=== PATIENT | male | born 1960 | race Two or more races ===

== ENCOUNTER 2018-05-19 12:59 | Inpatient (IN) | payer BC ==
[~2018-05-19] VITALS: Ht 172.7 cm; Wt 109.1 kg
[2018-05-19] MEDS ORDERED: ACETAMINOPHEN 325 MG TAB PO ONE ×2 (13:15→13:30)
[2018-05-19] MEDS ORDERED: SODIUM CHLORIDE 0.9% 1,000 ML IV ONE ×2 (13:42)
[2018-05-19] MEDS ORDERED: KETOROLAC TROMETH 30 MG/ML 1ML VIAL IV ONE (13:45)
[2018-05-19] MEDS ORDERED: ASPirin 81 mg TAB PO ONE (13:45)
[2018-05-19] MEDS ORDERED: NITROGLYCERIN 0.4 MG SL TAB SL ONE (13:45)
[2018-05-19] MEDS ORDERED: ONDANSETRON HCL 4 MG/2 ML VIAL IV ONE (13:45)
[2018-05-19 14:01] LABS: Basophils # (auto) 0 uL; Basophils % (auto) 0.2 % (0.0-2.0); Eosinophils # (auto) 0 uL; Hematocrit 40.7 % (41.0-53.0); Lymphocytes # (auto) 0.9 uL; Lymphocytes % (auto) 4.7 % (10.0-50.0); Mean Corpuscular Hemoglobin 30.4 pg (28.0-32.0); Mean Corpuscular Hgb Conc. 34.4 g/dL (32.0-36.0); Mean Corpuscular Volume 88.2 fL (80.0-100.0); Monocytes # (auto) 1.5 uL; Monocytes % (auto) 7.6 % (0.0-12.0); Neutrophils # (auto) 17.2 uL; Neutrophils % (auto) 87.5 % (37.0-80.0); Platelet Count (auto) 211 10^3/uL (140-450); Red Blood Cells 4.62 10^6/uL (4.5-5.90); White Blood Cell 19.6 10^3/uL (4.4-10.8)
[2018-05-19 14:13] LABS: INR 1.07 (0.9-1.15); Partial Thromboplastin Time 33.6 sec (23.78-33.04); Prothrombin Time 11.4 sec (9.27-12.13)
[2018-05-19 14:14] LABS: Urine Bacteria FEW /hpf (None Seen); Urine Blood 3+ /uL (Negative); Urine Mucus FEW (None Seen); Urine Specific Gravity 1.023 (1.001-1.035); Urine WBC 18 /hpf (0 - 3)
[2018-05-19] MEDS ORDERED: PIPERACILLIN-TAZOB 3.375GM 100 ML IV ONE (14:15)
[2018-05-19 14:43] LABS: Albumin 3.7 g/dL (3.4-5.0); Calcium 8.3 mg/dL (8.5-10.1); Potassium 3.5 mmol/L (3.5-5.1)
[2018-05-19 14:44] LABS: Bilirubin, Total 1.2 mg/dL (0.2-1.0); Total Protein 7.6 g/dL (6.4-8.2)
[2018-05-19] MEDS: SODIUM CHLORIDE 0.9% 1,000 ML IV SCH (15:43)
[2018-05-19] MEDS ORDERED: NITROGLYCERIN 0.4 MG SL TAB SL PRN (15:45)
[2018-05-19] MEDS ORDERED: PROMETHAZINE HCL 25 MG/ML 1ML IV PRN (15:45)
[2018-05-19] MEDS ORDERED: DEXTROSE (50%) 50ML SYRG IV PRN (15:45)
[2018-05-19] MEDS ORDERED: cefTRIAXone 1GM/10ml IVPUSH 10 ML IV ONE (15:45)
[2018-05-19] MEDS ORDERED: MORPHINE SULFATE 4 MG/ML SYR/VIAL IV PRN ×2 (15:45)
[2018-05-19] MEDS ORDERED: HYDROcodone-ACET 5/325MG TAB PO PRN (15:45)
[2018-05-19] MEDS: InsuLIN REG 1unit/0.01ml Soln (100units/ml) SC SCH ×2 (17:00→22:00)
[2018-05-19] MEDS: MORPHINE SULFATE 4 MG/ML SYR/VIAL IV PRN (17:35)
[2018-05-19] MEDS: ACCU-CHEK COMFORT CURVE STRIP VI SCH ×2 (17:35→22:06)
[2018-05-19] MEDS: ACETAMINOPHEN 500 MG TAB PO PRN ×2 (17:59→23:35)
[2018-05-19 18:26] VITALS: BP 98/61
[2018-05-19] MEDS: traMADol HCL 50 MG TAB PO PRN (18:42)
[2018-05-19] MEDS ORDERED: OXYCODONE HCL 5MG TAB PO ONE (19:15)
[2018-05-19] MEDS ORDERED: oxyCODONE ER 10 MG TAB PO ONE (19:15)
[2018-05-19] MEDS ORDERED: ATOR10TA52 PO (19:35)
[2018-05-19] MEDS ORDERED: METF-370 PO (19:35)
[2018-05-19] MEDS ORDERED: GABA400C11 PO (19:35)
[2018-05-19] MEDS ORDERED: DICL-176 PO (19:35)
[2018-05-19] MEDS ORDERED: OXY5T PO (19:35)
[2018-05-19] MEDS ORDERED: LOSA-46 PO (19:35)
[2018-05-19] MEDS ORDERED: TRAM50TA2 PO (19:35)
[2018-05-19] MEDS: PIPERACILLIN-TAZOB 3.375GM 100 ML IV SCH (19:52)
[2018-05-19 20:00] VITALS: BP 120/69
[2018-05-19 22:00] VITALS: BP 120/69
[2018-05-19] MEDS: oxyCODONE ER 10 MG TAB PO SCH (22:06)
[2018-05-20] MEDS: SODIUM CHLORIDE 0.9% 1,000 ML IV SCH ×4 (02:21→20:34)
[2018-05-20] MEDS: MORPHINE SULFATE 4 MG/ML SYR/VIAL IV PRN (02:21)
[2018-05-20] MEDS: PIPERACILLIN-TAZOB 3.375GM 100 ML IV SCH ×4 (03:37→21:01)
[2018-05-20 05:00] VITALS: BP 127/69
[2018-05-20] MEDS: ACCU-CHEK COMFORT CURVE STRIP VI SCH ×4 (06:24→21:01)
[2018-05-20] MEDS: InsuLIN REG 1unit/0.01ml Soln (100units/ml) SC SCH ×4 (06:25→21:14)
[2018-05-20] MEDS: ACETAMINOPHEN 500 MG TAB PO PRN (06:50)
[2018-05-20 07:35] VITALS: BP 105/69
[2018-05-20 08:18] VITALS: BP 126/74
[2018-05-20] MEDS ORDERED: cefTRIAXone 1GM/10ml IVPUSH 10 ML IV SCH (09:00)
[2018-05-20] MEDS: oxyCODONE ER 10 MG TAB PO SCH ×2 (09:52→21:02)
[2018-05-20] MEDS: PANTOPRAZOLE 40 MG TAB PO SCH (09:53)
[2018-05-20] MEDS: ENOXAPARIN SOD 40 MG/0.4 ML SYRINGE SC SCH (09:53)
[2018-05-20] MEDS ORDERED: LEVOFLOXACIN 500MG 100 ML IV ONE (10:30)
[2018-05-20] MEDS ORDERED: SODIUM CHLORIDE 0.9% 500 ML IV ONE (10:45)
[2018-05-20 11:09] LABS: Basophils # (auto) 0 uL; Basophils % (auto) 0.2 % (0.0-2.0); Eosinophils # (auto) 0 uL; Hematocrit 37.6 % (41.0-53.0); Hemoglobin 12.6 g/dL (13.5-17.5); Lymphocytes % (auto) 6.4 % (10.0-50.0); Mean Corpuscular Hemoglobin 29.8 pg (28.0-32.0); Mean Corpuscular Hgb Conc. 33.5 g/dL (32.0-36.0); Mean Corpuscular Volume 88.8 fL (80.0-100.0); Monocytes % (auto) 6.1 % (0.0-12.0); Neutrophils # (auto) 13.9 uL; Neutrophils % (auto) 87.3 % (37.0-80.0); Platelet Count (auto) 161 10^3/uL (140-450); Red Blood Cells 4.23 10^6/uL (4.5-5.90); Red Cell Distribution Width 14.1 % (11.8-14.3); White Blood Cell 15.9 10^3/uL (4.4-10.8)
[2018-05-20 11:21] LABS: Albumin 3.1 g/dL (3.4-5.0); Calcium 8.3 mg/dL (8.5-10.1); Potassium 3.4 mmol/L (3.5-5.1)
[2018-05-20 11:22] LABS: BUN/Creatinine Ratio 11.2; Bilirubin, Total 1.2 mg/dL (0.2-1.0); Total Protein 7.1 g/dL (6.4-8.2)
[2018-05-20 12:08] VITALS: BP 120/68
[2018-05-20] MEDS ORDERED: ACETAMINOPHEN 325 MG TAB PO PRN (15:45)
[2018-05-20] MEDS: traMADol HCL 50 MG TAB PO PRN (15:55)
[2018-05-20] MEDS ORDERED: METOPROLOL TARTRATE 1MG/1ML-5ML VIAL IV ONE (16:15)
[2018-05-20] MEDS: KETOROLAC TROMETH 30 MG/ML 1ML VIAL IV PRN (16:22)
[2018-05-20 16:40] VITALS: BP 134/78
[2018-05-20 20:00] VITALS: BP 123/80
[2018-05-20] MEDS: TEMAZEPAM 15 MG CAP PO PRN (23:01)
[2018-05-21] VITALS: BP 122/72
[2018-05-21] MEDS: SODIUM CHLORIDE 0.9% 1,000 ML IV SCH ×5 (00:12→21:06)
[2018-05-21] MEDS: PIPERACILLIN-TAZOB 3.375GM 100 ML IV SCH (02:20)
[2018-05-21] MEDS: KETOROLAC TROMETH 30 MG/ML 1ML VIAL IV PRN ×2 (02:21→16:24)
[2018-05-21] MEDS: LORazepam 0.5 MG TAB PO PRN ×2 (02:21→17:17)
[2018-05-21 04:00] VITALS: BP 109/76
[2018-05-21 05:10] LABS: Basophils # (auto) 0 uL; Basophils % (auto) 0.1 % (0.0-2.0); Eosinophils # (auto) 0.1 uL; Eosinophils % (auto) 0.5 % (0.0-7.0); Hematocrit 34.3 % (41.0-53.0); Hemoglobin 11.8 g/dL (13.5-17.5); Lymphocytes # (auto) 0.9 uL; Lymphocytes % (auto) 7.5 % (10.0-50.0); Mean Corpuscular Hemoglobin 30.1 pg (28.0-32.0); Mean Corpuscular Hgb Conc. 34.3 g/dL (32.0-36.0); Mean Corpuscular Volume 87.6 fL (80.0-100.0); Monocytes # (auto) 0.7 uL; Monocytes % (auto) 6.1 % (0.0-12.0); Neutrophils # (auto) 10.4 uL; Neutrophils % (auto) 85.8 % (37.0-80.0); Nucleated Red Blood Cells % 0.1 %; Platelet Count (auto) 160 10^3/uL (140-450); Red Blood Cells 3.92 10^6/uL (4.5-5.90); Red Cell Distribution Width 14.2 % (11.8-14.3); White Blood Cell 12.1 10^3/uL (4.4-10.8)
[2018-05-21 05:32] LABS: Albumin 2.6 g/dL (3.4-5.0); Calcium 7.7 mg/dL (8.5-10.1); Potassium 3.3 mmol/L (3.5-5.1)
[2018-05-21 05:36] LABS: BUN/Creatinine Ratio 15.6
[2018-05-21 05:39] LABS: Bilirubin, Total 0.7 mg/dL (0.2-1.0); Total Protein 6.3 g/dL (6.4-8.2)
[2018-05-21] MEDS: ACCU-CHEK COMFORT CURVE STRIP VI SCH ×4 (05:39→21:07)
[2018-05-21] MEDS: InsuLIN REG 1unit/0.01ml Soln (100units/ml) SC SCH ×4 (05:39→21:07)
[2018-05-21] MEDS: traMADol HCL 50 MG TAB PO PRN ×2 (08:00→14:04)
[2018-05-21] MEDS ORDERED: POTASSIUM CHL 20 Meq TABLET PO ONE (08:15)
[2018-05-21] MEDS: PANTOPRAZOLE 40 MG TAB PO SCH (09:49)
[2018-05-21] MEDS: oxyCODONE ER 10 MG TAB PO SCH ×2 (09:49→21:06)
[2018-05-21] MEDS: LEVOFLOXACIN 500MG 100 ML IV SCH (09:49)
[2018-05-21] MEDS: cefTRIAXone 1GM/10ml IVPUSH 10 ML IV SCH (09:49)
[2018-05-21] MEDS: METOPROLOL TARTRATE 50 MG TAB PO SCH ×2 (09:52→21:06)
[2018-05-21] MEDS: ENOXAPARIN SOD 40 MG/0.4 ML SYRINGE SC SCH (10:21)
[2018-05-21 11:50] VITALS: BP 143/71
[2018-05-21 15:43] VITALS: BP 150/99
[2018-05-21 19:50] VITALS: BP 137/81
[2018-05-21] MEDS: TEMAZEPAM 15 MG CAP PO PRN (21:14)
[2018-05-21 22:00] VITALS: BP 141/85
[2018-05-22] MEDS: KETOROLAC TROMETH 30 MG/ML 1ML VIAL IV PRN (00:07)
[2018-05-22] MEDS: SODIUM CHLORIDE 0.9% 1,000 ML IV SCH ×3 (03:45→23:45)
[2018-05-22 05:00] VITALS: BP 137/92
[2018-05-22] MEDS: ACCU-CHEK COMFORT CURVE STRIP VI SCH ×4 (06:13→22:00)
[2018-05-22] MEDS: InsuLIN REG 1unit/0.01ml Soln (100units/ml) SC SCH ×4 (06:13→22:00)
[2018-05-22 07:16] LABS: Basophils # (auto) 0 uL; Basophils % (auto) 0.2 % (0.0-2.0); Eosinophils # (auto) 0.1 uL; Eosinophils % (auto) 0.9 % (0.0-7.0); Hematocrit 35.2 % (41.0-53.0); Hemoglobin 12.2 g/dL (13.5-17.5); Lymphocytes # (auto) 1.1 uL; Lymphocytes % (auto) 12.8 % (10.0-50.0); Mean Corpuscular Hemoglobin 30.6 pg (28.0-32.0); Mean Corpuscular Hgb Conc. 34.7 g/dL (32.0-36.0); Mean Corpuscular Volume 88.1 fL (80.0-100.0); Monocytes # (auto) 0.6 uL; Monocytes % (auto) 7.1 % (0.0-12.0); Neutrophils # (auto) 6.7 uL; Nucleated Red Blood Cells % 0.1 %; Platelet Count (auto) 208 10^3/uL (140-450); Red Blood Cells 3.99 10^6/uL (4.5-5.90); Red Cell Distribution Width 14.5 % (11.8-14.3); White Blood Cell 8.5 10^3/uL (4.4-10.8)
[2018-05-22 07:32] LABS: Potassium 3.3 mmol/L (3.5-5.1)
[2018-05-22 07:41] LABS: Albumin 2.7 g/dL (3.4-5.0); BUN/Creatinine Ratio 16.7; Bilirubin, Total 0.5 mg/dL (0.2-1.0); Calcium 8.2 mg/dL (8.5-10.1); Total Protein 6.9 g/dL (6.4-8.2)
[2018-05-22] MEDS: PANTOPRAZOLE 40 MG TAB PO SCH (09:16)
[2018-05-22 09:17] VITALS: BP 148/84
[2018-05-22] MEDS: LEVOFLOXACIN 500MG 100 ML IV SCH (09:17)
[2018-05-22] MEDS: METOPROLOL TARTRATE 50 MG TAB PO SCH ×2 (09:17→21:44)
[2018-05-22] MEDS: cefTRIAXone 1GM/10ml IVPUSH 10 ML IV SCH (09:17)
[2018-05-22] MEDS: oxyCODONE ER 10 MG TAB PO SCH ×2 (09:17→21:41)
[2018-05-22] MEDS: ENOXAPARIN SOD 40 MG/0.4 ML SYRINGE SC SCH (09:18)
[2018-05-22] MEDS ORDERED: POTASSIUM CHL 20 Meq TABLET PO ONE (11:00)
[2018-05-22 13:05] VITALS: BP 151/87
[2018-05-22] MEDS: traMADol HCL 50 MG TAB PO PRN (13:26)
[2018-05-22] MEDS ORDERED: ADENOSINE 91 MG in GIVE UN-DILUTED 0 ML IV ONE ×2 (15:00→15:15)
[2018-05-22] MEDS ORDERED: ADENOSINE 12 MG/4 ML INJ IV ONE (15:30)
[2018-05-22 16:14] VITALS: BP 151/83
[2018-05-22 17:00] VITALS: BP 154/84
[2018-05-22] MEDS: TEMAZEPAM 15 MG CAP PO PRN (21:40)
[2018-05-22 22:00] VITALS: BP 135/73
[2018-05-23] MEDS: LORazepam 0.5 MG TAB PO PRN ×2 (03:17→16:56)
[2018-05-23] MEDS: traMADol HCL 50 MG TAB PO PRN ×2 (03:17→16:41)
[2018-05-23 05:00] VITALS: BP 152/84
[2018-05-23 05:34] LABS: Albumin 2.7 g/dL (3.4-5.0); BUN/Creatinine Ratio 14.4; Calcium 7.7 mg/dL (8.5-10.1); Potassium 3.6 mmol/L (3.5-5.1)
[2018-05-23 05:37] LABS: Bilirubin, Total 0.5 mg/dL (0.2-1.0); Total Protein 6.5 g/dL (6.4-8.2)
[2018-05-23] MEDS: InsuLIN REG 1unit/0.01ml Soln (100units/ml) SC SCH ×4 (06:21→21:54)
[2018-05-23] MEDS: ACCU-CHEK COMFORT CURVE STRIP VI SCH ×4 (06:21→21:54)
[2018-05-23] MEDS: SODIUM CHLORIDE 0.9% 1,000 ML IV SCH (06:25)
[2018-05-23 09:00] VITALS: BP 143/65
[2018-05-23] MEDS: cefTRIAXone 1GM/50ML D5W 50 ML IV SCH (09:07)
[2018-05-23] MEDS: METOPROLOL TARTRATE 50 MG TAB PO SCH ×2 (09:08→21:49)
[2018-05-23] MEDS ORDERED: LIDOCAINE 2%HCL (LOCAL ANESTH.) INJ 10ml MDV ONE (09:48)
[2018-05-23] MEDS ORDERED: IODIXANOL 320MG/ML 100ML BTL IV ONE ×3 (09:48→11:02)
[2018-05-23] MEDS: oxyCODONE ER 10 MG TAB PO SCH ×2 (10:00→21:48)
[2018-05-23] MEDS: PANTOPRAZOLE 40 MG TAB PO SCH (10:00)
[2018-05-23] MEDS: ENOXAPARIN SOD 40 MG/0.4 ML SYRINGE SC SCH (10:00)
[2018-05-23] MEDS ORDERED: fentaNYL CITRATE 100 MCG/2 ML VL ONE (10:13)
[2018-05-23] MEDS ORDERED: SODIUM CHL 0.9% 50 ML ONE (10:13)
[2018-05-23] MEDS ORDERED: VERAPAMIL 2.5MG/ML INJ 2ML VIAL IV ONE (10:13)
[2018-05-23] MEDS ORDERED: MIDAZOLAM HCL 1MG/1ML-2 ML VIAL ONE (10:13)
[2018-05-23] MEDS ORDERED: ANGIOMAX 250 MG VIAL IV ONE (10:13)
[2018-05-23] MEDS ORDERED: ASPirin 325 MG TAB ONE (10:45)
[2018-05-23] MEDS ORDERED: PRASUGREL HCL 10 MG TAB ONE (10:45)
[2018-05-23] MEDS ORDERED: SODIUM CHLORIDE 0.9% 1,000 ML IV ONE (12:00)
[2018-05-23 13:00] VITALS: BP 143/75
[2018-05-23 17:00] VITALS: BP 146/77
[2018-05-23 17:49] LABS: Basophils # (auto) 0 uL; Basophils % (auto) 0.4 % (0.0-2.0); Eosinophils # (auto) 0 uL; Eosinophils % (auto) 0.6 % (0.0-7.0); Hematocrit 35.1 % (41.0-53.0); Hemoglobin 12.1 g/dL (13.5-17.5); Lymphocytes # (auto) 1.2 uL; Lymphocytes % (auto) 15.6 % (10.0-50.0); Mean Corpuscular Hemoglobin 30.4 pg (28.0-32.0); Mean Corpuscular Hgb Conc. 34.4 g/dL (32.0-36.0); Mean Corpuscular Volume 88.4 fL (80.0-100.0); Monocytes # (auto) 0.8 uL; Monocytes % (auto) 10.7 % (0.0-12.0); Neutrophils # (auto) 5.8 uL; Neutrophils % (auto) 72.7 % (37.0-80.0); Nucleated Red Blood Cells % 0.3 %; Platelet Count (auto) 228 10^3/uL (140-450); Red Blood Cells 3.97 10^6/uL (4.5-5.90); Red Cell Distribution Width 14.9 % (11.8-14.3); White Blood Cell 7.9 10^3/uL (4.4-10.8)
[2018-05-23 22:00] VITALS: BP 141/75
[2018-05-23] MEDS ORDERED: ATORVASTATIN 20 MG TAB PO SCH (22:00)
[2018-05-24] MEDS: traMADol HCL 50 MG TAB PO PRN (04:03)
[2018-05-24 05:18] VITALS: BP 151/79
[2018-05-24] MEDS: ACCU-CHEK COMFORT CURVE STRIP VI SCH ×2 (06:01→11:30)
[2018-05-24] MEDS: InsuLIN REG 1unit/0.01ml Soln (100units/ml) SC SCH ×2 (06:02→11:30)
[2018-05-24 09:00] VITALS: BP 135/76
[2018-05-24] MEDS: PANTOPRAZOLE 40 MG TAB PO SCH (09:39)
[2018-05-24] MEDS: oxyCODONE ER 10 MG TAB PO SCH (09:40)
[2018-05-24] MEDS: ENOXAPARIN SOD 40 MG/0.4 ML SYRINGE SC SCH (09:40)
[2018-05-24] MEDS: cefTRIAXone 1GM/50ML D5W 50 ML IV SCH (09:40)
[2018-05-24] MEDS: METOPROLOL TARTRATE 50 MG TAB PO SCH (09:40)
[2018-05-24] MEDS ORDERED: PRASUGREL HCL 10 MG TAB PO SCH (10:00)
[2018-05-24] MEDS ORDERED: ASPirin 81 mg TAB PO SCH (10:00)
[2018-05-24 13:00] VITALS: BP 139/82
[2018-05-24 13:29] VITALS: BP 135/76
== END 2018-05-24 14:25 | disposition home or self-care (01) | DRG 854 ==
LOC: ER 12:59 → TELE 13:00 → TELE-CENTR 16:53 → DOU IN ICU 05-20 18:21 → TELE-WESTW 05-21 23:22
PROVIDERS: ADMIT Internal Medicine; ATTEND Family Medicine
PROC: 027035Z Dilation of Coronary Artery, One Artery with Two Drug-eluting Intraluminal Devices, Percutaneous Approach (ICD-10-PCS; principal; 2018-05-23)
PROC: 4A023N7 Measurement of Cardiac Sampling and Pressure, Left Heart, Percutaneous Approach (ICD-10-PCS; 2018-05-23)
PROC: B2111ZZ Fluoroscopy of Multiple Coronary Arteries using Low Osmolar Contrast (ICD-10-PCS; 2018-05-23)
DX: A41.9 Sepsis, unspecified organism (principal); N10 Acute pyelonephritis; K76.0 Fatty (change of) liver, not elsewhere classified; N20.0 Calculus of kidney; I10 Essential (primary) hypertension; E11.9 Type 2 diabetes mellitus without complications; D35.02 Benign neoplasm of left adrenal gland; E66.9 Obesity, unspecified; Z68.36 Body mass index [BMI] 36.0-36.9, adult; E86.0 Dehydration; G89.29 Other chronic pain; M54.9 Dorsalgia, unspecified; I45.10 Unspecified right bundle-branch block; K40.20 Bilateral inguinal hernia, without obstruction or gangrene, not specified as recurrent; K57.30 Diverticulosis of large intestine without perforation or abscess without bleeding; I25.10 Atherosclerotic heart disease of native coronary artery without angina pectoris; N40.0 Benign prostatic hyperplasia without lower urinary tract symptoms; Z83.3 Family history of diabetes mellitus; Z84.1 Family history of disorders of kidney and ureter; Z90.49 Acquired absence of other specified parts of digestive tract; Z79.84 Long term (current) use of oral hypoglycemic drugs; Z79.899 Other long term (current) drug therapy
CPT/HCPCS: 36415; 71045; 74176; 78452; 80053; 81001; 82962; 83036; 83605; 83880; 84484; 85025; 85610; 85730; 86850; 86900; 86901; 87040; 87086; 87088; 87186; 92928; 93005; 93017; 93306; 93458; 96361; 96365; 96375; 99152; A6257; C1874; G0378; J0153; J0696; J1815; J1885; J1956; J2001; J2250; J2405; J2543; Q9967

== ENCOUNTER 2018-11-06 12:46 | Emergency (ER) | payer BC, OTHER ==
[~2018-11-06] VITALS: Ht 172.7 cm; Wt 106.6 kg
[~2018-11-06 12:46] MED LIST: ATOR10TA52 PO; DICL-176 PO; GABA400C11 PO; LOSA-46 PO; METF-370 PO; OXY5T PO; TRAM50TA2 PO
[2018-11-06 13:30] LABS: Basophils # (auto) 0.1 uL; Basophils % (auto) 0.5 % (0.0-2.0); Eosinophils # (auto) 0.2 uL; Eosinophils % (auto) 1.3 % (0.0-7.0); Hematocrit 40.6 % (41.0-53.0); Hemoglobin 13.7 g/dL (13.5-17.5); Lymphocytes # (auto) 1.8 uL; Lymphocytes % (auto) 13.3 % (10.0-50.0); Mean Corpuscular Hemoglobin 29.5 pg (28.0-32.0); Mean Corpuscular Hgb Conc. 33.6 g/dL (32.0-36.0); Mean Corpuscular Volume 87.9 fL (80.0-100.0); Monocytes % (auto) 7.4 % (0.0-12.0); Neutrophils # (auto) 10.2 uL; Neutrophils % (auto) 77.5 % (37.0-80.0); Platelet Count (auto) 226 10^3/uL (140-450); Red Blood Cells 4.62 10^6/uL (4.5-5.90); White Blood Cell 13.2 10^3/uL (4.4-10.8)
[2018-11-06 13:51] LABS: Alanine Aminotransferase 43 U/L (16-61); Albumin 3.9 g/dL (3.4-5.0); Anion Gap 7 (5-15); Aspartate Aminotransferase 14 U/L (15-37); Blood Urea Nitrogen 19 mg/dL (7-18); Calcium 8.8 mg/dL (8.5-10.1); Carbon Dioxide 26 mmol/L (21-32); Chloride 104 mmol/L (98-107); Glucose 133 mg/dL (74-106); Magnesium 1.9 mg/dL (1.6-2.6); Potassium 3.5 mmol/L (3.5-5.1); Sodium 137 mmol/L (136-145)
[2018-11-06 13:56] LABS: Alkaline Phosphatase 97 U/L (45-117); BUN/Creatinine Ratio 16.4; Bilirubin, Total 0.8 mg/dL (0.2-1.0); GFR African American 83 mL/min; GFR Non-African American 69 mL/min; Total Protein 7.7 g/dL (6.4-8.2)
[2018-11-06 13:58] LABS: Urine Bacteria FEW /hpf (None Seen); Urine Blood 2+ /uL (Negative); Urine Specific Gravity 1.009 (1.001-1.035); Urine WBC 247 /hpf (0 - 3)
[2018-11-07 03:36] VITALS: BP 114/73
[2018-11-07] MEDS ORDERED: PHENAZOPYRIDINE HCL 100 MG TAB PO ONE (04:00)
[2018-11-07] MEDS ORDERED: LEVOFLOXACIN 500 MG TAB PO ONE (04:00)
== END 2018-11-07 04:08 | disposition home or self-care (01) ==
LOC: ER 12:59
DX: N39.0 Urinary tract infection, site not specified (principal); N20.0 Calculus of kidney; K57.30 Diverticulosis of large intestine without perforation or abscess without bleeding; E11.9 Type 2 diabetes mellitus without complications; I10 Essential (primary) hypertension; Z87.442 Personal history of urinary calculi; Z90.49 Acquired absence of other specified parts of digestive tract; Z79.84 Long term (current) use of oral hypoglycemic drugs; Z79.899 Other long term (current) drug therapy
CPT/HCPCS: 36415; 74176; 80053; 81001; 83735; 84484; 85025

== ENCOUNTER 2019-11-16 09:33 | Inpatient (IN) | payer OTHER ==
[~2019-11-16] VITALS: Ht 172.7 cm; Wt 101.3 kg
[~2019-11-16 09:33] MED LIST changes: -LOSA-46 PO; +LOSA-69 PO
[2019-11-16 10:05] LABS: Basophils # (auto) 0 10 ^3/uL (0-0.2); Basophils % (auto) 0.4 % (0.0-2.0); Eosinophils # (auto) 0 10 ^3/uL (0-0.8); Eosinophils % (auto) 0.3 % (0.0-7.0); Hematocrit 30.5 % (41.0-53.0); Hemoglobin 10.4 g/dL (13.5-17.5); Lymphocytes % (auto) 16.4 % (10.0-50.0); Mean Corpuscular Hemoglobin 30.1 pg (28.0-32.0); Mean Corpuscular Hgb Conc. 34.1 g/dL (32.0-36.0); Mean Corpuscular Volume 88.1 fL (80.0-100.0); Monocytes # (auto) 0.7 10 ^3/uL (0-1.3); Monocytes % (auto) 5.3 % (0.0-12.0); Neutrophils # (auto) 9.7 10 ^3/uL (1.6-8.6); Neutrophils % (auto) 77.6 % (37.0-80.0); Platelet Count (auto) 251 10^3/uL (140-450); Red Blood Cells 3.46 10^6/uL (4.5-5.90); Red Cell Distribution Width 14.8 % (11.8-14.3); White Blood Cell 12.5 10^3/uL (4.4-10.8)
[2019-11-16] MEDS ORDERED: SODIUM CHLORIDE 0.9% 1,000 ML IV ONE ×3 (10:08→13:45)
[2019-11-16] MEDS ORDERED: FERROUS SULFATE 325 MG TAB PO ONE (10:15)
[2019-11-16 10:21] LABS: Albumin 3.9 g/dL (3.4-5.0); Amylase 35 U/L (25-115); Anion Gap 13 (5-15); Blood Urea Nitrogen 50 mg/dL (7-18); Calcium 8.8 mg/dL (8.5-10.1); Carbon Dioxide 20 mmol/L (21-32); Chloride 109 mmol/L (98-107); Glucose 217 mg/dL (74-106); Lipase 151 U/L (73-393); Magnesium 1.7 mg/dL (1.6-2.6); Potassium 3.4 mmol/L (3.5-5.1); Sodium 142 mmol/L (136-145)
[2019-11-16 10:28] LABS: Alanine Aminotransferase 75 U/L (16-61); Alkaline Phosphatase 83 U/L (45-117); Aspartate Aminotransferase 38 U/L (15-37); BUN/Creatinine Ratio 29.4; Bilirubin, Total 0.6 mg/dL (0.2-1.0); GFR African American 53 mL/min; GFR Non-African American 44 mL/min; Total Protein 7.4 g/dL (6.4-8.2)
[2019-11-16 10:45] LABS: INR 1.07 (0.9-1.15); Partial Thromboplastin Time 25.3 sec (23.64-32.05)
[2019-11-16 11:42] LABS: Urine Bacteria NONE SEEN /hpf (None Seen); Urine Blood 3+ /uL (Negative); Urine Mucus FEW (None Seen); Urine Specific Gravity 1.025 (1.001-1.035); Urine WBC 2 /hpf (0 - 3)
[2019-11-16] MEDS ORDERED: ONDANSETRON HCL 4 MG/2 ML VIAL IV ONE (12:30)
[2019-11-16] MEDS ORDERED: PIPERACILLIN-TAZOB 3.375GM 100 ML IV ONE (13:00)
[2019-11-16] MEDS ORDERED: LACTULOSE 20Gm/30ML SOLN PO PRN (13:30)
[2019-11-16] MEDS ORDERED: DEXTROSE (50%) 50ML SYRG IV PRN (13:30)
[2019-11-16] MEDS ORDERED: PROMETHAZINE HCL 25 MG/ML 1ML IV PRN (13:30)
[2019-11-16] MEDS ORDERED: MORPHINE SULF INJ 2 MG/ML SYRINGE 1ML IV PRN (13:30)
[2019-11-16] MEDS ORDERED: NITROGLYCERIN 0.4 MG SL TAB SL PRN (13:30)
[2019-11-16] MEDS ORDERED: PANTOPRAZOLE 40 MG/10 ML VIAL INJ IV ONE (13:30)
[2019-11-16] MEDS ORDERED: METOPROLOL TARTRATE 25 MG TAB PO ONE (14:00)
[2019-11-16] MEDS ORDERED: LORazepam 2MG/ML-1ML VIAL IV ONE (14:00)
[2019-11-16] MEDS: POTASSIUM CHL 20MEQ/100ML 100 ML IV SCH ×2 (14:25→18:00)
[2019-11-16] MEDS: SODIUM CHLORIDE 0.9% 1,000 ML IV SCH ×2 (15:00→21:08)
--- NOTE | 2019-11-16 16:35 | NUR ---
Telemetry admit from [facility] admitted to Telemetry unit after SBAR received. Patient oriented to Rebecca Fish, primary RN, unit, room, bed, and unit policies regarding patient care and visiting hours. Patient now on continuous telemetry monitoring, tele box #73 and telemetry reading on arrival to unit is ST. Patient placed on bedside oxygen, weighed by bedscale and encouraged to call if they need something. All questions and concerns addressed, patient verbalized understanding.
[2019-11-16 16:53] VITALS: BP 107/69
[2019-11-16] MEDS: InsuLIN REG 1unit/0.01ml Soln (100units/ml) SC SCH (18:00)
[2019-11-16] MEDS: ACCU-CHEK COMFORT CURVE STRIP VI SCH (18:43)
[2019-11-16 18:48] LABS: Hematocrit 24.3 % (41.0-53.0); Hemoglobin 8.3 g/dL (13.5-17.5)
--- NOTE | 2019-11-16 19:15 | NUR ---
CLOSING SHIFT NOTE PATIENT COMFORTABLY RESTING IN BED. BREATH SOUNDS EVEN AND UNLABORED. CARE ENDORSED TO ANAYELI STALEY.
--- NOTE | 2019-11-16 19:47 | NUR ---
Opening Shift Note Assumed care of patient after receiving report from LUÍS Rivera. Patient is awake and alert, resting in bed comfortably. No S/S of distress/SOB or pain. Instructed on POC and to call for assist PRN, will continue to monitor for changes Q1hr and PRN.
[2019-11-16] MEDS: MORPHINE SULF INJ 2 MG/ML SYRINGE 1ML IV PRN (21:00)
[2019-11-16] MEDS: PANTOPRAZOLE 40 MG TAB PO SCH (21:36)
[2019-11-16 22:00] VITALS: BP 120/58
[2019-11-17] MEDS: ACCU-CHEK COMFORT CURVE STRIP VI SCH ×5 (00:12→23:13)
[2019-11-17 01:13] LABS: Hemoglobin 8.1 g/dL (13.5-17.5)
[2019-11-17 01:15] LABS: Hematocrit 23.8 % (41.0-53.0)
[2019-11-17] MEDS: TEMAZEPAM 15 MG CAP PO PRN ×2 (01:19→23:13)
--- NOTE | 2019-11-17 03:09 | NUR ---
Report given by richard Branham, to continue pt. care.
[2019-11-17 05:00] VITALS: BP 111/71
[2019-11-17] MEDS: SODIUM CHLORIDE 0.9% 1,000 ML IV SCH ×3 (05:18→21:18)
[2019-11-17] MEDS: InsuLIN REG 1unit/0.01ml Soln (100units/ml) SC SCH ×5 (05:39→23:13)
[2019-11-17 06:05] LABS: Eosinophils # (auto) 0.1 10 ^3/uL (0-0.8); Hemoglobin 8.3 g/dL (13.5-17.5); Neutrophils # (auto) 6.6 10 ^3/uL (1.6-8.6)
[2019-11-17 06:08] LABS: Basophils # (auto) 0 10 ^3/uL (0-0.2); Basophils % (auto) 0.5 % (0.0-2.0); Eosinophils % (auto) 0.7 % (0.0-7.0); Hematocrit 23.8 % (41.0-53.0); Lymphocytes % (auto) 21.5 % (10.0-50.0); Mean Corpuscular Hemoglobin 30.6 pg (28.0-32.0); Mean Corpuscular Volume 87.5 fL (80.0-100.0); Monocytes # (auto) 0.5 10 ^3/uL (0-1.3); Monocytes % (auto) 5.8 % (0.0-12.0); Neutrophils % (auto) 71.5 % (37.0-80.0); Nucleated Red Blood Cells % 0.1 %; Platelet Count (auto) 212 10^3/uL (140-450); Red Blood Cells 2.72 10^6/uL (4.5-5.90); White Blood Cell 9.2 10^3/uL (4.4-10.8)
[2019-11-17 06:23] LABS: Potassium 3.5 mmol/L (3.5-5.1)
[2019-11-17 06:31] LABS: Albumin 3.6 g/dL (3.4-5.0); BUN/Creatinine Ratio 25.2; Bilirubin, Total 0.6 mg/dL (0.2-1.0); Calcium 8.4 mg/dL (8.5-10.1); Total Protein 6.5 g/dL (6.4-8.2)
--- NOTE | 2019-11-17 07:30 | NUR ---
Opening Shift Note Assumed care of patient, awake and alert. No S/S of distress/SOB or pain. Instructed on POC and to call for assist PRN, will continue to monitor for changes Q1hr and PRN. Patient is NPO for EGD.
[2019-11-17 08:00] VITALS: BP 135/74
[2019-11-17 08:41] VITALS: BP 135/74
--- NOTE | 2019-11-17 09:00 | NUR ---
Patient states he is receiving "shocks" from his tele box, wants it removed. Tele box removed. Will inform hospitalist.
[2019-11-17] MEDS ORDERED: FLUMAZENIL 0.1 MG/ML INJ 10ML MDV IV ONE (09:01)
[2019-11-17] MEDS ORDERED: NALOXONE HCL 0.4 MG/ML VIAL ONE (09:01)
[2019-11-17] MEDS ORDERED: SODIUM CHLORIDE LOCK 0 ML ONE (09:01)
[2019-11-17] MEDS ORDERED: LIDOCAINE VISCOUS 2% 15ML UD ONE (09:01)
[2019-11-17] MEDS ORDERED: fentaNYL CITRATE 100 MCG/2 ML VL ONE (09:02)
[2019-11-17] MEDS ORDERED: MIDAZOLAM HCL 5 MG/ML-1ML VIAL ONE (09:02)
[2019-11-17] MEDS ORDERED: diphenhdrAMINE HCL 50 MG/1 ML VL ONE (09:02)
--- NOTE | 2019-11-17 09:25 | NUR ---
Patient taken to OR via bed. Consents and surgical checklist in chart. Report given to Pre-op RN.
--- NOTE | 2019-11-17 10:40 | NUR ---
Dr. Guerda Rosas informed what the patient stated re the shocks from the tele box. Order received to DC tele.
[2019-11-17] MEDS ORDERED: PROPOFOL 10 MG/ML 20 ML IV ONE (11:19)
[2019-11-17] MEDS ORDERED: LIDOCAINE 2% (LOCAL ANESTH.) PF 5ml SDV ONE (11:19)
[2019-11-17] MEDS ORDERED: ONDANSETRON HCL 4 MG/2 ML VIAL IV PRN (11:45)
[2019-11-17] MEDS ORDERED: LABETALOL HCL 5 MG/ML 4ML SYRINGE IV PRN (11:45)
[2019-11-17] MEDS ORDERED: hydrALAZINE HCL 20 MG/ML VL IV PRN (11:45)
[2019-11-17] MEDS ORDERED: HYDROmorphone HCL 2 MG/ML VL IV PRN (11:45)
[2019-11-17] MEDS: MORPHINE SULF INJ 2 MG/ML SYRINGE 1ML IV PRN ×3 (11:55→21:16)
[2019-11-17 12:42] VITALS: BP 115/65
[2019-11-17] MEDS: PANTOPRAZOLE 40 MG TAB PO SCH ×2 (13:29→21:16)
[2019-11-17 17:00] VITALS: BP 126/75
--- NOTE | 2019-11-17 20:00 | NUR ---
Opening Shift Note Assumed care of patient, awake and alert. No S/S of distress/SOB or pain. Instructed on POC and to call for assist PRN, will continue to monitor for changes Q1hr and PRN.
--- NOTE | 2019-11-17 21:16 | NUR ---
Medicated with Morphine one mg.i.v.p. for back pain 01/15, and at 2145, no pain noted.
[2019-11-17 22:00] VITALS: BP 125/68
[2019-11-18] MEDS: MORPHINE SULF INJ 2 MG/ML SYRINGE 1ML IV PRN (01:12)
--- NOTE | 2019-11-18 01:12 | NUR ---
Medicated with Morphine 1mg.i.v.p for back pain 01/15, and at 013 , asleep.
[2019-11-18 05:00] VITALS: BP 133/78
[2019-11-18 05:20] LABS: Basophils # (auto) 0 10 ^3/uL (0-0.2); Eosinophils # (auto) 0 10 ^3/uL (0-0.8); Hemoglobin 8.1 g/dL (13.5-17.5); Lymphocytes # (auto) 1.4 10 ^3/uL (0.4-5.4); Monocytes # (auto) 0.6 10 ^3/uL (0-1.3)
[2019-11-18 05:22] LABS: Basophils % (auto) 0.3 % (0.0-2.0); Eosinophils % (auto) 0.3 % (0.0-7.0); Hematocrit 22.8 % (41.0-53.0); Lymphocytes % (auto) 14.3 % (10.0-50.0); Mean Corpuscular Hemoglobin 31.1 pg (28.0-32.0); Mean Corpuscular Hgb Conc. 35.5 g/dL (32.0-36.0); Mean Corpuscular Volume 87.6 fL (80.0-100.0); Monocytes % (auto) 5.8 % (0.0-12.0); Neutrophils # (auto) 7.6 10 ^3/uL (1.6-8.6); Neutrophils % (auto) 79.3 % (37.0-80.0); Platelet Count (auto) 199 10^3/uL (140-450); Red Cell Distribution Width 14.9 % (11.8-14.3); White Blood Cell 9.5 10^3/uL (4.4-10.8)
[2019-11-18 05:44] LABS: Potassium 3.6 mmol/L (3.5-5.1)
[2019-11-18] MEDS: SODIUM CHLORIDE 0.9% 1,000 ML IV SCH (05:49)
[2019-11-18] MEDS: ACCU-CHEK COMFORT CURVE STRIP VI SCH ×2 (05:50→11:40)
[2019-11-18] MEDS: InsuLIN REG 1unit/0.01ml Soln (100units/ml) SC SCH ×2 (05:50→11:40)
[2019-11-18 05:53] LABS: Albumin 3.4 g/dL (3.4-5.0); BUN/Creatinine Ratio 13.8; Bilirubin, Total 0.7 mg/dL (0.2-1.0); Calcium 8.6 mg/dL (8.5-10.1); Total Protein 6.4 g/dL (6.4-8.2)
--- NOTE | 2019-11-18 07:30 | NUR ---
Opening Shift Note Assumed care of patient, awake and alert. Sitting up in a chair. No S/S of distress/SOB or pain. Instructed on POC and to call for assist PRN, will continue to monitor for changes Q1hr and PRN.
--- NOTE | 2019-11-18 07:37 | NUR ---
Report given to Perlita Hall, patient is resting no distress.
[2019-11-18 08:00] VITALS: BP 121/68
[2019-11-18 09:00] VITALS: BP 121/68
[2019-11-18] MEDS: PANTOPRAZOLE 40 MG TAB PO SCH (09:44)
--- NOTE | 2019-11-18 12:40 | NUR ---
Discharge instructions given as ordered. Encourage to follow up with PMD as instructed. All questions and concerns addressed. Patient verbalized understanding. IV removed with catheter intact, pressure dressing applied. Telemetry unit returned to ICU. Patient taken to vehicle via wheelchair with all personal belongings, accompanied by staff and family member. No distress noted at time of departure.
[2019-11-18 12:45] VITALS: BP 142/68
[2019-11-19 10:02] LABS: Hepatitis B Surface Antibody Negative
[2019-11-19 10:23] LABS: Hepatitis A Total Antibody Positive
[2019-11-19 11:28] LABS: Hepatitis B Core Total AB Negative
[2019-11-19 11:29] LABS: Hepatitis B Surface Antigen Negative (Negative); Hepatitis C Antibody Negative (Negative)
[2020-03-21] MEDS ORDERED: ATOR40TA52 PO (14:42)
[2020-03-21] MEDS ORDERED: METO25TA93 PO (14:42)
[2020-03-21] MEDS ORDERED: CLOP75TA41 PO (14:42)
[2020-03-21] MEDS ORDERED: TAMS0.4C36 PO (14:42)
[2020-03-21] MEDS ORDERED: OXYC15TA77 PO (14:42)
[2020-03-21] MEDS ORDERED: LOSA100T33 PO (14:42)
[2020-03-21] MEDS ORDERED: DULO1CAP5 PO (14:42)
== END 2019-11-18 12:40 | disposition home or self-care (01) | DRG 377 ==
LOC: ER 09:33 → TELE 09:34 → TELE-WESTW 16:30 → WEST WING 11-17 10:36
PROVIDERS: ADMIT Internal Medicine; ATTEND Internal Medicine
PROC: 0DJ08ZZ Inspection of Upper Intestinal Tract, Via Natural or Artificial Opening Endoscopic (ICD-10-PCS; principal; 2019-11-17 11:22)
DX: K29.81 Duodenitis with bleeding (principal); N17.0 Acute kidney failure with tubular necrosis; K29.71 Gastritis, unspecified, with bleeding; G89.29 Other chronic pain; E86.0 Dehydration; D50.0 Iron deficiency anemia secondary to blood loss (chronic); N40.0 Benign prostatic hyperplasia without lower urinary tract symptoms; K57.90 Diverticulosis of intestine, part unspecified, without perforation or abscess without bleeding; M54.9 Dorsalgia, unspecified; E87.6 Hypokalemia; Z96.653 Presence of artificial knee joint, bilateral; I10 Essential (primary) hypertension; E11.65 Type 2 diabetes mellitus with hyperglycemia; E78.00 Pure hypercholesterolemia, unspecified; D72.829 Elevated white blood cell count, unspecified; Z79.899 Other long term (current) drug therapy; Z79.84 Long term (current) use of oral hypoglycemic drugs; Z87.442 Personal history of urinary calculi; Z90.49 Acquired absence of other specified parts of digestive tract; Z83.3 Family history of diabetes mellitus; Z84.1 Family history of disorders of kidney and ureter; Z95.5 Presence of coronary angioplasty implant and graft; K40.20 Bilateral inguinal hernia, without obstruction or gangrene, not specified as recurrent; K42.9 Umbilical hernia without obstruction or gangrene; M47.9 Spondylosis, unspecified
CPT/HCPCS: 36415; 43235; 71046; 74176; 76705; 80053; 81001; 82150; 82962; 83036; 83690; 83735; 84484; 85014; 85018; 85025; 85045; 85610; 85652; 85730; 86141; 86704; 86706; 86708; 86803; 86850; 86900; 86901; 87340; 93005; 96361; 96365; 96375; 99291; C9113; G0378; J2001; J2250; J2405; J2543; J2704; J3480

== ENCOUNTER → 2020-03-26 | Day surgery (SDC) | payer OTHER ==
[2020-03-21 09:06] LABS: Eosinophils # (auto) 0.2 10 ^3/uL (0-0.8); Monocytes # (auto) 0.3 10 ^3/uL (0-1.3); Neutrophils % (auto) 68.3 % (37.0-80.0)
[2020-03-21 09:08] LABS: Basophils # (auto) 0 10 ^3/uL (0-0.2); Basophils % (auto) 0.6 % (0.0-2.0); Eosinophils % (auto) 3.9 % (0.0-7.0); Hematocrit 41.7 % (41.0-53.0); Hemoglobin 13.6 g/dL (13.5-17.5); Lymphocytes # (auto) 1.3 10 ^3/uL (0.4-5.4); Lymphocytes % (auto) 21.6 % (10.0-50.0); Mean Corpuscular Hemoglobin 26.6 pg (28.0-32.0); Mean Corpuscular Hgb Conc. 32.6 g/dL (32.0-36.0); Mean Corpuscular Volume 81.6 fL (80.0-100.0); Monocytes % (auto) 5.6 % (0.0-12.0); Neutrophils # (auto) 4.2 10 ^3/uL (1.6-8.6); Nucleated Red Blood Cells % 0.1 %; Platelet Count (auto) 228 10^3/uL (140-450); Red Blood Cells 5.11 10^6/uL (4.5-5.90); Red Cell Distribution Width 15.6 % (11.8-14.3); White Blood Cell 6.1 10^3/uL (4.4-10.8)
[2020-03-21 09:27] LABS: Partial Thromboplastin Time 29.5 sec (23.0-31.2)
[~2020-03-26] VITALS: Ht 175.3 cm; Wt 102.1 kg
[~2020-03-26] MED LIST changes: -ATOR10TA52 PO; +ATOR40TA52 PO; +CLOP75TA41 PO; -DICL-176 PO; +DULO1CAP5 PO; -LOSA-69 PO; +LOSA100T33 PO; +METO25TA93 PO; -OXY5T PO; +OXYC15TA77 PO; +TAMS0.4C36 PO; +diphenhdrAMINE HCL 50 MG/1 ML VL ONE
[2020-03-26] MEDS: fentaNYL CITRATE 100 MCG/2 ML VL ONE ×2 (14:38→14:40)
[2020-03-26] MEDS: MIDAZOLAM HCL 5 MG/ML-1ML VIAL ONE ×4 (14:38→14:52)
[2020-03-26 15:27] VITALS: BP 121/64
== END | disposition home or self-care (01) ==
LOC: GI 13:44
PROVIDERS: ATTEND Internal Medicine Gastroenterology
DX: Z12.11 Encounter for screening for malignant neoplasm of colon (principal); D12.3 Benign neoplasm of transverse colon; D12.4 Benign neoplasm of descending colon; Z11.59 Encounter for screening for other viral diseases; K52.9 Noninfective gastroenteritis and colitis, unspecified; M62.89 Other specified disorders of muscle; K64.8 Other hemorrhoids; Z68.29 Body mass index [BMI] 29.0-29.9, adult; Z98.890 Other specified postprocedural states; Z79.899 Other long term (current) drug therapy
CPT/HCPCS: 36415; 45385; 82962; 85025; 85610; 85730; 88305; J1200; J2250; J3010; J7030; U0003; 99152

== ENCOUNTER 2020-06-15 15:47 | Inpatient (IN) | payer OTHER ==
[~2020-06-15] VITALS: Ht 175.3 cm; Wt 106.2 kg
[~2020-06-15 15:47] MED LIST changes: -diphenhdrAMINE HCL 50 MG/1 ML VL ONE
[2020-06-15 17:48] LABS: Basophils # (auto) 0 10 ^3/uL (0-0.2); Eosinophils # (auto) 0.1 10 ^3/uL (0-0.8); Hemoglobin 7.5 g/dL (13.5-17.5); Lymphocytes # (auto) 1.2 10 ^3/uL (0.4-5.4); Monocytes # (auto) 0.8 10 ^3/uL (0-1.3); Red Cell Distribution Width 16.1 % (11.8-14.3)
[2020-06-15 17:51] LABS: Basophils % (auto) 0.3 % (0.0-2.0); Eosinophils % (auto) 1.5 % (0.0-7.0); Hematocrit 22.9 % (41.0-53.0); Lymphocytes % (auto) 11.9 % (10.0-50.0); Mean Corpuscular Hemoglobin 28.5 pg (28.0-32.0); Mean Corpuscular Hgb Conc. 32.9 g/dL (32.0-36.0); Mean Corpuscular Volume 86.5 fL (80.0-100.0); Monocytes % (auto) 8.2 % (0.0-12.0); Neutrophils # (auto) 7.6 10 ^3/uL (1.6-8.6); Neutrophils % (auto) 78.1 % (37.0-80.0); Nucleated Red Blood Cells % 0.4 %; Platelet Count (auto) 321 10^3/uL (140-450); Red Blood Cells 2.64 10^6/uL (4.5-5.90); White Blood Cell 9.7 10^3/uL (4.4-10.8)
[2020-06-15 17:59] LABS: Albumin 2.5 g/dL (3.4-5.0); Calcium 8.2 mg/dL (8.5-10.1); Magnesium 2.5 mg/dL (1.6-2.6); Potassium 3.9 mmol/L (3.5-5.1)
[2020-06-15 18:05] LABS: BUN/Creatinine Ratio 18.3; Bilirubin, Total 0.4 mg/dL (0.2-1.0)
[2020-06-15] MEDS ORDERED: oxyCODONE ER 10 MG TAB PO ONE (20:30)
[2020-06-15 20:42] LABS: Urine Bacteria NONE SEEN /hpf (None Seen); Urine Blood Negative /uL (Negative); Urine Hyaline Cast FEW /lpf (0 - 2); Urine Mucus FEW (None Seen); Urine Specific Gravity 1.016 (1.001-1.035); Urine WBC 1 /hpf (0 - 3)
[2020-06-15] MEDS ORDERED: ONDANSETRON HCL 4 MG/2 ML VIAL IV PRN (22:00)
[2020-06-15] MEDS: FAMOTIDINE 20 MG TAB PO SCH (22:00)
[2020-06-15] MEDS ORDERED: MORPHINE SULF INJ 2 MG/ML SYRINGE 1ML IV PRN (22:00)
[2020-06-15] MEDS ORDERED: TEMAZEPAM 15 MG CAP PO PRN (22:00)
[2020-06-15] MEDS ORDERED: DEXTROSE (50%) 50ML SYRG IV PRN (22:00)
[2020-06-15] MEDS: InsuLIN REG 1unit/0.01ml Soln (100units/ml) SC SCH (22:00)
[2020-06-15] MEDS ORDERED: ACETAMINOPHEN 325 MG TAB PO PRN (22:00)
[2020-06-15] MEDS ORDERED: NITROGLYCERIN 0.4 MG SL TAB SL PRN (22:00)
--- NOTE | 2020-06-15 22:39 | NUR ---
ER CALLED CARDIO CONSULT WITH DR. MINAYA.
[2020-06-15] MEDS: ATORVASTATIN 20 MG TAB PO SCH (22:42)
[2020-06-15] MEDS: ACCU-CHEK COMFORT CURVE STRIP VI SCH (22:43)
[2020-06-15] MEDS: HYDROcodone-ACET 5/325MG TAB PO PRN (22:43)
--- NOTE | 2020-06-15 23:22 | NUR ---
Telemetry admit from [facility] admitted to Telemetry unit after NO SBAR received. Patient oriented to DANIELLE LOPEZ RN primary RN, [facility], and unit policies regarding patient care and visiting hours. Patient now on continuous telemetry monitoring, tele box # 27 and telemetry reading on arrival to unit is 80 BPM. NO SIGNS OF SOB/ DISTRESS. Patient weighed by bedscale and encouraged to call if they need something. All questions and concerns addressed, patient verbalized understanding.
[2020-06-15 23:25] VITALS: BP 112/20
--- NOTE | 2020-06-16 01:03 | NUR ---
ROUNDS PATIENT RESTING IN THE SEMIFOWLERS POSITION. NO SIGNS OF DISTRESS/ SOB
--- NOTE | 2020-06-16 04:15 | NUR ---
ROUNDS PATIENT ASLEEP ON HIS LEFT SIDE HIGH FOWLERS. NO SIGNS OF DISTRESS/ SOB AT THIS TIME.
[2020-06-16 05:16] VITALS: BP 101/61
[2020-06-16] MEDS: ACCU-CHEK COMFORT CURVE STRIP VI SCH ×4 (06:00→21:10)
[2020-06-16] MEDS: InsuLIN REG 1unit/0.01ml Soln (100units/ml) SC SCH ×4 (06:00→21:10)
[2020-06-16] MEDS: HYDROcodone-ACET 5/325MG TAB PO PRN ×4 (06:02→21:37)
--- NOTE | 2020-06-16 06:02 | NUR ---
PAIN MANAGEMENT PATIENT COMPLAINS OF 6/10 THROBBING LOWER BACK PAIN. MEDICATED WITH NORCO 3/325
[2020-06-16 06:39] LABS: Platelet Count (auto) 303 10^3/uL (140-450)
[2020-06-16 06:42] LABS: Hematocrit 23.4 % (41.0-53.0); Hemoglobin 7.7 g/dL (13.5-17.5); Mean Corpuscular Hemoglobin 28.3 pg (28.0-32.0); Mean Corpuscular Hgb Conc. 32.9 g/dL (32.0-36.0); Mean Corpuscular Volume 85.9 fL (80.0-100.0); Red Blood Cells 2.72 10^6/uL (4.5-5.90); Red Cell Distribution Width 16.1 % (11.8-14.3); White Blood Cell 7.8 10^3/uL (4.4-10.8)
[2020-06-16 07:00] LABS: Band Neutrophils % (manual) 0; Basophils % (manual) 0 (0.0-2.0); Blast Cells 0; Myelocytes % 0; Promyelocytes % 0; Reactive Lymphocytes 0
--- NOTE | 2020-06-16 07:00 | NUR ---
OPENING SHIFT NOTE RECEIVED REPORT ON THE PATIENT. AWAKE LYING IN BED. PATIENT SHOWS NO SIGNS OF DISTRESS AT THIS TIME. DISCUSSING THE PLAN OF CARE WITH THE PATIENT. BED IN LOWEST POSITION, SIDE RAILS UP X2, AND THE CALL LIGHT IS WITHIN REACH.
[2020-06-16 07:01] LABS: BUN/Creatinine Ratio 17.3; Calcium 8.3 mg/dL (8.5-10.1); Potassium 3.7 mmol/L (3.5-5.1)
[2020-06-16 07:40] LABS: Eosinophils % (manual) 4 (0-7); Lymphocytes % (manual) 9 (10.0-50.0); Metamyelocytes % 2; Monocytes % (manual) 9 (0-12)
[2020-06-16 08:36] VITALS: BP 95/62
--- NOTE | 2020-06-16 09:13 | NUR ---
DR CUEVAS AT BEDSIDE. SAW ECHO WHILE TECH WAS DOING ECHO. WAS VERY HAPPY WITH RESULTS AND THAT THERE WAS NO FUSION. PER DR CUEVAS PATIENT CAN BE DISCHARGED TOMORROW BECAUSE HE NEEDS TO START CHEMO/RADIATION IMMEDIATELY. NO NEED TO WAIT. WILL LET HOSPITALIST KNOW.
[2020-06-16] MEDS ORDERED: FERROUS SULFATE 325 MG TAB PO ONE (10:15)
[2020-06-16] MEDS: ASPirin 81 mg TAB PO SCH (10:47)
[2020-06-16] MEDS: ENOXAPARIN SOD 40 MG/0.4 ML SYRINGE SC SCH (10:48)
[2020-06-16] MEDS: FAMOTIDINE 20 MG TAB PO SCH ×2 (10:48→21:05)
[2020-06-16] MEDS: CLOPIDOGREL BISULFATE 75 MG TAB PO SCH (10:48)
[2020-06-16 12:10] VITALS: BP 112/64
[2020-06-16 16:56] VITALS: BP 114/57
[2020-06-16] MEDS: FERROUS SULFATE 325 MG TAB PO SCH (17:05)
[2020-06-16] MEDS ORDERED: TAMSULOSIN HYDROCHLORIDE 0.4 MG CAP PO SCH (18:00)
--- NOTE | 2020-06-16 19:15 | NUR ---
Opening Shift Note Assumed care of patient, awake and alert sitting at the edge of the bed. Patient on room air with no S/S of distress/SOB or pain. Bed locked in lowest position, side rails up x2, call light within reach. Instructed on POC and to call for assist PRN, will continue to monitor for changes Q1hr and PRN.
[2020-06-16] MEDS: ATORVASTATIN 20 MG TAB PO SCH (21:05)
--- NOTE | 2020-06-16 21:11 | NUR ---
BLOOD SUGAR 171, PATIENT REFUSES INSULIN AT THIS TIME.
--- NOTE | 2020-06-16 21:37 | NUR ---
PAIN MANAGEMENT PATIENT COMPLAINS OF 6/10 THROBBING LOWER BACK PAIN. MEDICATED WITH NORCO 3/325
[2020-06-16 22:00] VITALS: BP 123/58
--- NOTE | 2020-06-17 00:39 | NUR ---
ROUNDS PATIENT ASLEEP ON SEMIFOWLERS POSITION. NO SIGNS OF DISTRESS/ SOB AT THIS TIME.
[2020-06-17] MEDS: HYDROcodone-ACET 5/325MG TAB PO PRN ×3 (01:37→10:04)
[2020-06-17 05:00] VITALS: BP 125/60
--- NOTE | 2020-06-17 05:56 | NUR ---
PAIN MANAGEMENT PATIENT COMPLAINS OF 6/10 THROBBING LOWER BACK PAIN. MEDICATED WITH NORCO 3/325
[2020-06-17] MEDS: ACCU-CHEK COMFORT CURVE STRIP VI SCH ×2 (05:57→11:41)
[2020-06-17] MEDS: InsuLIN REG 1unit/0.01ml Soln (100units/ml) SC SCH ×2 (05:57→11:30)
[2020-06-17 07:10] LABS: White Blood Cell 6.5 10^3/uL (4.4-10.8)
[2020-06-17 07:13] LABS: Hematocrit 23.4 % (41.0-53.0); Hemoglobin 7.8 g/dL (13.5-17.5); Mean Corpuscular Hemoglobin 28.4 pg (28.0-32.0); Mean Corpuscular Hgb Conc. 33.1 g/dL (32.0-36.0); Mean Corpuscular Volume 85.8 fL (80.0-100.0); Platelet Count (auto) 340 10^3/uL (140-450); Red Blood Cells 2.73 10^6/uL (4.5-5.90)
--- NOTE | 2020-06-17 07:30 | NUR ---
RECEIVED REPORT FROM NIGHT NURSE. PATIENT RESTING IN BED, NO DISTRESS NOTED. WILL CONTINUE TO MONITOR.
[2020-06-17 07:33] LABS: Potassium 3.8 mmol/L (3.5-5.1)
[2020-06-17 07:37] LABS: Band Neutrophils % (manual) 0; Basophils % (manual) 0 (0.0-2.0); Blast Cells 0; Eosinophils % (manual) 0 (0-7); Metamyelocytes % 0; Promyelocytes % 0; Reactive Lymphocytes 0
[2020-06-17 08:04] LABS: BUN/Creatinine Ratio 11.2; Calcium 8.5 mg/dL (8.5-10.1)
[2020-06-17 08:30] LABS: Lymphocytes % (manual) 25 (10.0-50.0); Monocytes % (manual) 7 (0-12); Myelocytes % 3
--- NOTE | 2020-06-17 08:50 | NUR ---
DOCTOR MASON AT BEDSIDE.
[2020-06-17 09:00] VITALS: BP 134/71
[2020-06-17] MEDS: ENOXAPARIN SOD 40 MG/0.4 ML SYRINGE SC SCH (10:00)
[2020-06-17] MEDS: FAMOTIDINE 20 MG TAB PO SCH (10:03)
[2020-06-17] MEDS: FERROUS SULFATE 325 MG TAB PO SCH (10:03)
[2020-06-17] MEDS: ASPirin 81 mg TAB PO SCH (10:03)
[2020-06-17] MEDS: CLOPIDOGREL BISULFATE 75 MG TAB PO SCH (10:04)
--- NOTE | 2020-06-17 14:35 | NUR ---
Discharge instructions given as ordered. Encourage to follow up with PMD as instructed. All questions and concerns addressed. Patient verbalized understanding. Medication reconciliation form completed and copy given to patient. IV removed with catheter intact, pressure dressing applied. Telemetry unit returned to ICU. Patient taken to vehicle via wheelchair with all personal belongings, accompanied by staff member. No distress noted at time of departure.
== END 2020-06-17 14:19 | disposition home or self-care (01) | DRG 312 ==
LOC: ER 15:48 → TELE 15:49 → TELE-CENTR 22:40
PROVIDERS: ADMIT Nurse Practitioner; ATTEND Internal Medicine
DX: I95.2 Hypotension due to drugs (principal); I50.33 Acute on chronic diastolic (congestive) heart failure; E44.0 Moderate protein-calorie malnutrition; I11.0 Hypertensive heart disease with heart failure; C76.0 Malignant neoplasm of head, face and neck; D50.0 Iron deficiency anemia secondary to blood loss (chronic); R77.8 Other specified abnormalities of plasma proteins; E11.9 Type 2 diabetes mellitus without complications; E66.9 Obesity, unspecified; I25.10 Atherosclerotic heart disease of native coronary artery without angina pectoris; E78.5 Hyperlipidemia, unspecified; Z96.659 Presence of unspecified artificial knee joint; R09.89 Other specified symptoms and signs involving the circulatory and respiratory systems; G89.29 Other chronic pain; M54.5 Low back pain; Z82.49 Family history of ischemic heart disease and other diseases of the circulatory system; Z83.3 Family history of diabetes mellitus; Z85.89 Personal history of malignant neoplasm of other organs and systems; Z95.1 Presence of aortocoronary bypass graft; Z90.49 Acquired absence of other specified parts of digestive tract; Z68.34 Body mass index [BMI] 34.0-34.9, adult; T50.995A Adverse effect of other drugs, medicaments and biological substances, initial encounter
CPT/HCPCS: 36415; 71045; 80048; 80053; 81001; 82962; 83036; 83605; 83735; 83880; 84484; 85007; 85025; 85027; 86850; 86900; 86901; 87040; 87081; 93005; 93306; G0378

== ENCOUNTER 2020-09-21 08:10 | Emergency (ER) | payer OTHER ==
[~2020-09-21] VITALS: Ht 172.7 cm; Wt 89.8 kg
[~2020-09-21 08:10] MED LIST changes: -CLOP75TA41 PO; +CLOP75TA70 PO
[2020-09-21] MEDS ORDERED: SODIUM CHLORIDE 0.9% 1,000 ML IV ONE ×2 (08:45)
[2020-09-21] MEDS ORDERED: ONDANSETRON HCL 4 MG/2 ML VIAL IV ONE (08:45)
[2020-09-21 10:18] LABS: INR 0.98 (0.9-1.15); Partial Thromboplastin Time 23.6 sec (23.0-31.2)
[2020-09-21 10:19] LABS: Basophils # (auto) 0 10 ^3/uL (0-0.2); Basophils % (auto) 0.1 % (0.0-2.0); Eosinophils # (auto) 0 10 ^3/uL (0-0.8); Eosinophils % (auto) 0.3 % (0.0-7.0); Hematocrit 42.3 % (41.0-53.0); Hemoglobin 14.4 g/dL (13.5-17.5); Lymphocytes # (auto) 0.2 10 ^3/uL (0.4-5.4); Lymphocytes % (auto) 5.9 % (10.0-50.0); Mean Corpuscular Volume 79.6 fL (80.0-100.0); Monocytes # (auto) 0.3 10 ^3/uL (0-1.3); Monocytes % (auto) 6.9 % (0.0-12.0); Neutrophils # (auto) 3.5 10 ^3/uL (1.6-8.6); Neutrophils % (auto) 86.8 % (37.0-80.0); Nucleated Red Blood Cells % 0.1 %; Red Blood Cells 5.31 10^6/uL (4.5-5.90)
[2020-09-21 10:25] LABS: Alanine Aminotransferase 64 U/L (16-61); Albumin 3.4 g/dL (3.4-5.0); Anion Gap 11 (5-15); Aspartate Aminotransferase 23 U/L (15-37); BUN/Creatinine Ratio 19.8; Blood Urea Nitrogen 23 mg/dL (7-18); Calcium 9.1 mg/dL (8.5-10.1); Carbon Dioxide 24 mmol/L (21-32); Chloride 104 mmol/L (98-107); GFR African American 83 mL/min; GFR Non-African American 68 mL/min; Glucose 132 mg/dL (74-106); Potassium 3.6 mmol/L (3.5-5.1); Sodium 139 mmol/L (136-145)
[2020-09-21 10:30] LABS: Alkaline Phosphatase 104 U/L (45-117); Bilirubin, Total 0.6 mg/dL (0.2-1.0); Total Protein 7.1 g/dL (6.4-8.2)
[2020-09-21] MEDS ORDERED: PROMETHAZINE HCL 25 MG/ML 1ML IV ONE (11:00)
[2020-09-21 14:30] VITALS: BP 122/73
== END 2020-09-21 14:58 | disposition home or self-care (01) ==
LOC: ER 08:10
DX: R11.2 Nausea with vomiting, unspecified (principal); E86.0 Dehydration; I10 Essential (primary) hypertension; E11.9 Type 2 diabetes mellitus without complications; E78.5 Hyperlipidemia, unspecified; Z90.49 Acquired absence of other specified parts of digestive tract; Z79.899 Other long term (current) drug therapy
CPT/HCPCS: 36415; 71045; 80053; 83880; 84484; 85025; 85610; 85730; 96361; 96374; 96375; 99285; J2405; J2550

== ENCOUNTER 2021-01-08 13:38 | Inpatient (IN) | payer OTHER ==
[~2021-01-08] VITALS: Ht 175.3 cm; Wt 89.5 kg
[2021-01-08] MEDS ORDERED: ONDANSETRON HCL 4 MG/2 ML VIAL IV ONE (14:00)
[2021-01-08] MEDS ORDERED: SODIUM CHLORIDE 0.9% 1,000 ML IVB ONE (14:00)
[2021-01-08] MEDS ORDERED: MORPHINE SULFATE 4 MG/ML SYR/VIAL IV ONE (14:00)
[2021-01-08 14:38] LABS: Urine Bacteria NONE SEEN /hpf (None Seen); Urine Blood Negative /uL (Negative); Urine Mucus FEW (None Seen); Urine Specific Gravity 1.019 (1.001-1.035); Urine WBC 1 /hpf (0 - 3)
[2021-01-08 14:41] LABS: Basophils # (auto) 0 10 ^3/uL (0-0.2); Basophils % (auto) 0.5 % (0.0-2.0); Eosinophils # (auto) 0.1 10 ^3/uL (0-0.8); Eosinophils % (auto) 0.8 % (0.0-7.0); Hematocrit 35.7 % (41.0-53.0); Hemoglobin 12.3 g/dL (13.5-17.5); Lymphocytes # (auto) 0.8 10 ^3/uL (0.4-5.4); Lymphocytes % (auto) 10.5 % (10.0-50.0); Mean Corpuscular Hemoglobin 31.1 pg (28.0-32.0); Mean Corpuscular Hgb Conc. 34.4 g/dL (32.0-36.0); Mean Corpuscular Volume 90.4 fL (80.0-100.0); Monocytes # (auto) 0.5 10 ^3/uL (0-1.3); Monocytes % (auto) 7.4 % (0.0-12.0); Neutrophils # (auto) 5.9 10 ^3/uL (1.6-8.6); Neutrophils % (auto) 80.8 % (37.0-80.0); Nucleated Red Blood Cells % 0.1 %; Platelet Count (auto) 216 10^3/uL (140-450); Red Blood Cells 3.95 10^6/uL (4.5-5.90); Red Cell Distribution Width 13.6 % (11.8-14.3); White Blood Cell 7.3 10^3/uL (4.4-10.8)
[2021-01-08 14:59] LABS: Albumin 3.6 g/dL (3.4-5.0); Calcium 9.2 mg/dL (8.5-10.1); Potassium 3.9 mmol/L (3.5-5.1)
[2021-01-08 15:02] LABS: BUN/Creatinine Ratio 13.7; Bilirubin, Total 0.6 mg/dL (0.2-1.0); Total Protein 7.4 g/dL (6.4-8.2)
[2021-01-08] MEDS ORDERED: HYDROmorphone HCL 2 MG/ML VL IV ONE (18:45)
[2021-01-08] MEDS ORDERED: ACETAMINOPHEN 325 MG TAB PO ONE (19:00)
[2021-01-08] MEDS ORDERED: NITROGLYCERIN 0.4 MG SL TAB SL PRN (23:00)
[2021-01-08] MEDS ORDERED: ACETAMINOPHEN 325 MG TAB PO PRN (23:00)
[2021-01-08] MEDS ORDERED: MORPHINE SULF INJ 2 MG/ML SYRINGE 1ML IV PRN (23:00)
[2021-01-08] MEDS: SODIUM CHLORIDE 0.9% 1,000 ML IV SCH (23:10)
[2021-01-08] MEDS: MORPHINE SULFATE 4 MG/ML SYR/VIAL IV PRN (23:11)
[2021-01-08] MEDS: ONDANSETRON HCL 4 MG/2 ML VIAL IV PRN (23:11)
[2021-01-09] VITALS (7 sets, daily range): BP systolic 120–142; BP diastolic 67–81
[2021-01-09] MEDS: MORPHINE SULFATE 4 MG/ML SYR/VIAL IV PRN ×2 (04:35→10:25)
[2021-01-09] MEDS: ONDANSETRON HCL 4 MG/2 ML VIAL IV PRN ×5 (04:35→18:31)
[2021-01-09] MEDS ORDERED: FENT25DI2 TOP (05:02)
[2021-01-09 05:43] LABS: Basophils # (auto) 0 10 ^3/uL (0-0.2); Basophils % (auto) 0.3 % (0.0-2.0); Eosinophils # (auto) 0.1 10 ^3/uL (0-0.8); Eosinophils % (auto) 1.2 % (0.0-7.0); Hematocrit 30.4 % (41.0-53.0); Hemoglobin 10.7 g/dL (13.5-17.5); Lymphocytes # (auto) 0.6 10 ^3/uL (0.4-5.4); Lymphocytes % (auto) 11.7 % (10.0-50.0); Mean Corpuscular Hgb Conc. 35.3 g/dL (32.0-36.0); Mean Corpuscular Volume 90.5 fL (80.0-100.0); Monocytes # (auto) 0.5 10 ^3/uL (0-1.3); Monocytes % (auto) 9.1 % (0.0-12.0); Neutrophils # (auto) 3.9 10 ^3/uL (1.6-8.6); Neutrophils % (auto) 77.7 % (37.0-80.0); Nucleated Red Blood Cells % 0.1 %; Platelet Count (auto) 168 10^3/uL (140-450); Red Blood Cells 3.36 10^6/uL (4.5-5.90); Red Cell Distribution Width 13.5 % (11.8-14.3)
[2021-01-09 06:00] LABS: Albumin 3.1 g/dL (3.4-5.0); Calcium 8.7 mg/dL (8.5-10.1); Potassium 3.5 mmol/L (3.5-5.1)
[2021-01-09 06:03] LABS: BUN/Creatinine Ratio 13.7
[2021-01-09 06:05] LABS: Bilirubin, Total 0.7 mg/dL (0.2-1.0); Total Protein 6.3 g/dL (6.4-8.2)
[2021-01-09] MEDS: ENOXAPARIN SOD 40 MG/0.4 ML SYRINGE SC SCH (10:00)
[2021-01-09] MEDS: FAMOTIDINE (10MG/ML) 2ML VL IV SCH ×2 (10:25→22:14)
[2021-01-09 12:33] LABS: INR 1.08 (0.9-1.15)
[2021-01-09] MEDS: GABAPENTIN 400 MG CAP PO SCH ×2 (13:49→22:15)
[2021-01-09] MEDS: HYDROmorphone HCL 2 MG/ML VL IV PRN ×5 (14:35→23:00)
[2021-01-09] MEDS: SODIUM CHLORIDE 0.9% 1,000 ML IV SCH (15:40)
[2021-01-09] MEDS: TAMSULOSIN HYDROCHLORIDE 0.4 MG CAP PO SCH (18:28)
[2021-01-09] MEDS: DULoxetine HCL 30 MG CAP PO SCH (22:14)
[2021-01-09] MEDS: ATORVASTATIN 20 MG TAB PO SCH (22:15)
[2021-01-10] VITALS (7 sets, daily range): BP systolic 113–143; BP diastolic 66–84
[2021-01-10 05:33] LABS: Basophils # (auto) 0 10 ^3/uL (0-0.2); Basophils % (auto) 0.4 % (0.0-2.0); Eosinophils # (auto) 0.1 10 ^3/uL (0-0.8); Eosinophils % (auto) 1.5 % (0.0-7.0); Hematocrit 31.1 % (41.0-53.0); Hemoglobin 10.9 g/dL (13.5-17.5); Lymphocytes # (auto) 0.5 10 ^3/uL (0.4-5.4); Lymphocytes % (auto) 11.1 % (10.0-50.0); Mean Corpuscular Hemoglobin 31.4 pg (28.0-32.0); Mean Corpuscular Volume 89.7 fL (80.0-100.0); Monocytes # (auto) 0.4 10 ^3/uL (0-1.3); Monocytes % (auto) 9.4 % (0.0-12.0); Neutrophils # (auto) 3.5 10 ^3/uL (1.6-8.6); Neutrophils % (auto) 77.6 % (37.0-80.0); Platelet Count (auto) 194 10^3/uL (140-450); Red Blood Cells 3.47 10^6/uL (4.5-5.90); Red Cell Distribution Width 13.4 % (11.8-14.3); White Blood Cell 4.5 10^3/uL (4.4-10.8)
[2021-01-10] MEDS: HYDROmorphone HCL 2 MG/ML VL IV PRN ×4 (05:45→23:14)
[2021-01-10] MEDS: GABAPENTIN 400 MG CAP PO SCH ×3 (05:45→23:14)
[2021-01-10 05:59] LABS: Albumin 3.1 g/dL (3.4-5.0); Potassium 3.4 mmol/L (3.5-5.1)
[2021-01-10 06:02] LABS: Bilirubin, Total 0.7 mg/dL (0.2-1.0); Total Protein 6.4 g/dL (6.4-8.2)
[2021-01-10] MEDS: SODIUM CHLORIDE 0.9% 1,000 ML IV SCH ×3 (08:20→15:10)
[2021-01-10 08:50] LABS: Phosphorus 3.7 mg/dL (2.5-4.90); Uric Acid 4.9 mg/dL (3.5-7.2)
[2021-01-10] MEDS: ENOXAPARIN SOD 40 MG/0.4 ML SYRINGE SC SCH ×2 (10:00→10:10)
[2021-01-10] MEDS ORDERED: CLOPIDOGREL BISULFATE 75 MG TAB PO SCH (10:00)
[2021-01-10] MEDS: FAMOTIDINE (10MG/ML) 2ML VL IV SCH ×2 (10:09→23:14)
[2021-01-10] MEDS: DULoxetine HCL 30 MG CAP PO SCH ×2 (10:09→23:13)
[2021-01-10] MEDS ORDERED: SODIUM CHLORIDE 0.9% 1,000 ML IV SCH (12:45)
[2021-01-10] MEDS: HYDROcodone-ACET 5/325MG TAB PO PRN (13:26)
[2021-01-10] MEDS ORDERED: POTASSIUM CHL 10 Meq TABLET PO ONE (15:00)
[2021-01-10] MEDS: TAMSULOSIN HYDROCHLORIDE 0.4 MG CAP PO SCH (18:04)
[2021-01-10] MEDS: ATORVASTATIN 20 MG TAB PO SCH (23:13)
[2021-01-11 05:00] VITALS: BP 135/72
[2021-01-11] MEDS: SODIUM CHLORIDE 0.9% 1,000 ML IV SCH ×2 (05:59→13:15)
[2021-01-11] MEDS: GABAPENTIN 400 MG CAP PO SCH (06:00)
[2021-01-11 07:38] LABS: Basophils # (auto) 0 10 ^3/uL (0-0.2); Basophils % (auto) 0.5 % (0.0-2.0); Eosinophils # (auto) 0.1 10 ^3/uL (0-0.8); Eosinophils % (auto) 1.7 % (0.0-7.0); Hematocrit 31.7 % (41.0-53.0); Lymphocytes # (auto) 0.4 10 ^3/uL (0.4-5.4); Mean Corpuscular Hemoglobin 31.1 pg (28.0-32.0); Mean Corpuscular Hgb Conc. 34.5 g/dL (32.0-36.0); Monocytes # (auto) 0.4 10 ^3/uL (0-1.3); Neutrophils # (auto) 3.1 10 ^3/uL (1.6-8.6); Neutrophils % (auto) 77.8 % (37.0-80.0); Nucleated Red Blood Cells % 0.1 %; Platelet Count (auto) 197 10^3/uL (140-450); Red Blood Cells 3.53 10^6/uL (4.5-5.90); Red Cell Distribution Width 13.2 % (11.8-14.3)
[2021-01-11 07:52] LABS: Calcium 8.5 mg/dL (8.5-10.1); Potassium 3.3 mmol/L (3.5-5.1)
[2021-01-11 07:55] LABS: Albumin 2.9 g/dL (3.4-5.0); BUN/Creatinine Ratio 7.5
[2021-01-11 07:56] LABS: Bilirubin, Total 0.6 mg/dL (0.2-1.0); Total Protein 6.3 g/dL (6.4-8.2)
[2021-01-11 08:00] VITALS: BP 137/76
[2021-01-11 09:00] VITALS: BP 137/76
[2021-01-11] MEDS: DULoxetine HCL 30 MG CAP PO SCH (09:32)
[2021-01-11] MEDS: ENOXAPARIN SOD 40 MG/0.4 ML SYRINGE SC SCH (09:33)
[2021-01-11] MEDS: HYDROcodone-ACET 5/325MG TAB PO PRN (09:34)
[2021-01-11] MEDS ORDERED: CHOLECALCIFEROL (VITD3) 1,000UNIT=25mCg TAB PO SCH (10:00)
[2021-01-11] MEDS ORDERED: CHOLECALCIFEROL (VITD3) 2,000 UNIT CAP/TAB PO SCH (10:00)
[2021-01-11] MEDS ORDERED: ASCORBIC ACID 500 MG TAB PO SCH (10:00)
[2021-01-11] MEDS: FAMOTIDINE (10MG/ML) 2ML VL IV SCH (10:42)
[2021-01-11] MEDS: HYDROmorphone HCL 2 MG/ML VL IV PRN (10:43)
[2021-01-11] MEDS ORDERED: fentaNYL 25MCG/HR 25 MCG/HR PAT TD SCH (11:15)
[2021-01-11 13:00] VITALS: BP 136/73
[2021-01-11 14:13] VITALS: BP 136/73
== END 2021-01-11 16:05 | disposition home or self-care (01) | DRG 693 ==
LOC: ER 13:44 → TELE 22:48 → TELE-WESTW 23:34
PROVIDERS: ADMIT Nurse Practitioner Family; ATTEND Internal Medicine
DX: N20.0 Calculus of kidney (principal); N17.0 Acute kidney failure with tubular necrosis; N12 Tubulo-interstitial nephritis, not specified as acute or chronic; K40.20 Bilateral inguinal hernia, without obstruction or gangrene, not specified as recurrent; K42.9 Umbilical hernia without obstruction or gangrene; Z20.822 Contact with and (suspected) exposure to COVID-19; I25.10 Atherosclerotic heart disease of native coronary artery without angina pectoris; Z96.653 Presence of artificial knee joint, bilateral; K57.30 Diverticulosis of large intestine without perforation or abscess without bleeding; K21.9 Gastro-esophageal reflux disease without esophagitis; K83.8 Other specified diseases of biliary tract; K82.8 Other specified diseases of gallbladder; N40.0 Benign prostatic hyperplasia without lower urinary tract symptoms; G89.29 Other chronic pain; M54.5 Low back pain; M19.90 Unspecified osteoarthritis, unspecified site; N18.9 Chronic kidney disease, unspecified; E11.22 Type 2 diabetes mellitus with diabetic chronic kidney disease; I12.9 Hypertensive chronic kidney disease with stage 1 through stage 4 chronic kidney disease, or unspecified chronic kidney disease; D63.1 Anemia in chronic kidney disease; E78.5 Hyperlipidemia, unspecified; Z82.49 Family history of ischemic heart disease and other diseases of the circulatory system; Z83.3 Family history of diabetes mellitus; Z90.49 Acquired absence of other specified parts of digestive tract; Z95.1 Presence of aortocoronary bypass graft; Z79.02 Long term (current) use of antithrombotics/antiplatelets; Z79.84 Long term (current) use of oral hypoglycemic drugs; Z79.899 Other long term (current) drug therapy; Z85.89 Personal history of malignant neoplasm of other organs and systems
CPT/HCPCS: 36415; 74176; 76705; 78226; 80053; 81001; 82150; 82306; 83690; 83970; 84100; 84550; 85025; 85610; 87426; 96361; 96374; 96375; G0378; J2405; J3490

== ENCOUNTER → 2021-08-11 | Outpatient (CLI) | payer OTHER ==
[~2021-08-11] MED LIST changes: +FENT25DI2 TOP; -GABA400C11 PO; -LOSA100T33 PO; -METO25TA93 PO; -OXYC15TA77 PO
== END | disposition home or self-care (01) ==
LOC: LAB 07:30
PROVIDERS: ATTEND Nurse Practitioner Family
DX: N39.0 Urinary tract infection, site not specified (principal)
CPT/HCPCS: 87086; 87088; 87186